=== PATIENT | female | born 1980 | race Hispanic/Latino ===

== ENCOUNTER 2022-07-17 22:21 | Emergency (ER) | payer SELFPAY ==
--- NOTE | ~2022-07-17 | US_ITS ---
EXAMINATION: US OB <=14 wk fetus w TV DATE: 07/18/2022 02:51 INDICATION: Pelvic pain. Positive hCG test. TECHNIQUE: Real-time transabdominal and transvaginal obstetric ultrasound. FINDINGS: No prior studies for comparison. The uterus measures 10.8 x 6.1 x 5.7 cm. There is an intrauterine gestational sac measuring 1.08 cm m dashawn sac diameter, 5 weeks 6 days. Yolk sac and pole are not identified. Ovaries are normal. No free fluid in the pelvis. IMPRESSION: 1. Intrauterine gestational sac corresponding to a 5 week 6 day gestation. Recommend follow-up with s erial quantitative beta hCG levels and ultrasound as clinically warranted. Reviewed, dictated and finalized at location A. [employer] IMPRESSION: 1. Intrauterine gestational sac corresponding to a 5 week 6 day gestation. Jarrod mmend follow-up with serial quantitative beta hCG levels and ultrasound as clin ically warranted.
[2022-07-17 22:26] VITALS: BP 122/81; PULSE 86; RESP 18; TEMP 36.7; O2SAT 100
[2022-07-18 00:18] LABS: Basophils Absolute Auto 0.1 K/mm3 (0.0-0.1); Basophils Percent Auto 0.7 % (0.2-1.2); Eosinophils Absolute Auto 0.1 K/mm3 (0-0.3); Eosinophils Percent Auto 1.4 % (0-4.4); Hematocrit 36.6 % (37.0-47.0); Hemoglobin 12.1 g/dL (12.0-15.0); Immature Granulocyte Absolute 0.03 K/mm3 (0.00-0.031); Immature Granulocyte Percent A 0.3 % (0-0.5); Lymphocytes Absolute Auto 3.28 K/mm3 (0.9-3.2); Lymphocytes Percent Auto 37.9 % (18.3-44.2); Mean Corpuscular HGB Conc 33.1 g/dl (32-36); Mean Corpuscular Hemoglobin 27.7 pg (26-34); Mean Corpuscular Volume 83.8 fl (80-100); Mean Platelet Volume 10.2 fl (7.4-10.4); Monocytes Absolute Auto 0.8 K/mm3 (0.1-0.6); Monocytes Percent Auto 8.7 % (2.6-8.5); Neutrophils Absolute Auto 4.4 K/mm3 (1.3-6.7); Platelet Count Result 298 k/mm3 (150-375); Red Blood Count 4.37 M/mm3 (4.2-5.4); Red Cell Distribution Width 13.3 % (11.5-14.5); White Blood Count 8.7 K/mm3 (4.5-10.0)
[2022-07-18 00:20] LABS: Appearance Urine Slightly Cloudy (Clear); Bilirubin Urine Negative (Negative); Blood Urine Trace-intact (Negative); Color Urine Yellow (Yellow); Glucose Urine UA Negative (Negative); Ketones Urine Negative (Negative); Leukocyte Esterase Ur Negative LEU/UL (Negative); Nitrate Urine Positive (Negative); Protein Urine Negative (Negative); Specific Grav Ur 1.025 (1.001-1.035); Urobilinogen Urine 0.2 mg/dL (<2.0)
[2022-07-18 00:25] LABS: Influenza A QL RT-PCR Negative (Negative); Influenza B QL RT-PCR Negative (Negative); SARS-CoV-2 RNA PCR Negative
[2022-07-18 00:27] LABS: Bacteria Urine 2+ /hpf; Mucus Urine Moderate /lpf; RBC Urine 0-2 /hpf (0-2); Squamous Epithelial Cell Urine Many /hpf (Few); WBC Urine 0-3 /hpf
[2022-07-18 00:29] LABS: Add Urine Microscopic? YES
[2022-07-18 00:42] LABS: Alanine Aminotransferase 19 U/L (6-35); Albumin Level 4.4 g/dL (3.5-5.1); Alkaline Phosphatase 78 U/L (38-126); Anion Gap 7 mmol/L (8-16); Aspartate Amino Transferase 22 U/L (14-36); Bilirubin,Total 0.3 mg/dL (0.2-1.3); Blood Urea Nitrogen 11 mg/dL (7-17); Calcium 8.6 mg/dL (8.4-10.2); Carbon Dioxide 23 mmol/L (22-30); Chloride 106 mmol/L (98-107); Estimated Glomerular Filt Rate > 60; Glucose 97 mg/dL (65-110); Lipase 45 U/L (23-300); Potassium 3.3 mmol/L (3.4-5.0); Sodium 136 mmol/L (137-145)
[2022-07-18 01:00] VITALS: BP 126/78; PULSE 80; RESP 16; O2SAT 98
[2022-07-18] MEDS: DOXYCYCLINE HYCLATE 100 MG TABLET PO (01:25)
[2022-07-18 02:00] VITALS: BP 126/80; PULSE 84; RESP 16; O2SAT 98
[2022-07-18] MEDS: POTASSIUM CHLORIDE 20 MEQ PACKET (FOR LIQUID) PO (02:51)
--- NOTE | 2022-07-18 03:02 | ED.ABDPAIN ---
HPI - Abdominal Pain General Chief Complaint: Abdominal Pain Stated Complaint: sick Time Seen by Provider: 07/18/22 00:27 Source: patient Mode of arrival: ambulatory Limitations: no limitations History of Present Illness HPI narrative: 42-year-old Romanian-speaking female presents today with her at bedside. Patient here with concerns of lower abdominal pain that started about 10 days ago. Patient states there is very little abdominal pain. She denies any vaginal bleeding, burning on urination, does endorse minimal back pain. Denies fevers, body aches, chills, nausea, vomiting, diarrhea. She does endorse a positive urine test at home. This did make her a G8, P7. She has 7 children at home the youngest being 5. Related Data Allergies Allergy/AdvReac Type Severity Reaction Status Date / Time No Known Allergies Allergy Verified 07/18/22 00:15 Review of Systems Review of Systems: CONSTITUTIONAL: Denies fever, chills, or sweats. EYES: Denies visual changes, redness, or discharge. ENT: Denies rhinorrhea, congestion, sore throat, or otalgia. CARDIOVASCULAR: Denies chest pain, palpitations, or edema. RESPIRATORY: Denies cough or dyspnea. GASTROINTESTINAL: Abdominal pain. Denies nausea, vomiting, or diarrhea. GENITOURINARY: Denies dysuria or hematuria. SKIN: Denies rash or itching. MUSCULOSKELETAL: Denies back pain, joint pain, or myalgia. NEUROLOGIC: Denies headache, numbness, dizziness, or weakness. PSYCHIATRIC: Denies anxiety or depression. Exam Narrative: GENERAL: Well-appearing, well-nourished, and in no acute distress. HEAD: Normocephalic, atraumatic. EYES: PERRLA and EOMI. CHEST: Clear to auscultation. No respiratory distress. No wheezes rales or rhonchi HEART: Regular rate and rhythm. No murmur heard. Normal peripheral pulses. ABDOMEN: Pelvic tenderness. Soft nondistended, normal active bowel sounds. EXTREMITIES: Normal range of motion. No edema. SKIN: Warm, dry, no rash. NEURO: No focal deficits. Alert and oriented x3. PSYCH: Normal mood and affect. Course Vital Signs Vital signs: Vital Signs Temperature 98.1 F 07/17/22 22:26 Pulse Rate 86 07/17/22 22:26 Respiratory Rate 18 07/17/22 22:26 Blood Pressure 122/81 07/17/22 22:26 Pulse Oximetry 100 07/17/22 22:26 Oxygen Delivery Room Air 07/17/22 22:26 Temperature 98.1 F 07/17/22 22:26 Pulse Rate 84 07/18/22 02:00 Respiratory Rate 16 07/18/22 02:00 Blood Pressure 126/80 07/18/22 02:00 Pulse Oximetry 98 07/18/22 02:00 Oxygen Delivery Room Air 07/17/22 22:26 MDM - Abdominal Pain MDM Narrative Medical decision making narrative: 42-year-old female HPI as noted. Work-up to include CBC, CMP, urinalysis, urine test, beta hCG, influenza, SARS, obstetric ultrasound. CBC without concerning findings. CMP with a potassium of 3.3 will replace orally. Urinalysis shows concerns for possible UTI. Beta hCG was elevated. Due to patient having lower abdominal pain ultrasound ordered to rule out ectopic. Ultrasound shows IUP. Patient without any bleeding. Will discharge plan follow-up with OB for further management and to return with any new or worsening concerns. Differential Diagnosis Differential diagnosis: Likely abdominal pain and other (UTI, ectopic ,) Medical Records Attestation: I reviewed the patient's medical records. Lab Data Attestation: I reviewed the patient's lab results. 07/18/22 00:10 07/18/22 00:10 Labs: Lab Results 07/17/22 07/18/22 07/18/22 Range/Units 23:42 00:10 00:10 WBC 8.7 (4.5-10.0) K/mm3 RBC 4.37 (4.2-5.4) M/mm3 Hgb 12.1 (12.0-15.0) g/dL Hct 36.6 L (37.0-47.0) % MCV 83.8 (80-100) fl MCH 27.7 (26-34) pg MCHC 33.1 (32-36) g/dl RDW 13.3 (11.5-14.5) % Plt Count 298 (150-375) k/mm3 MPV 10.2 (7.4-10.4) fl Immature Gran % (Auto) 0.3 (0-0.5) % Neut % (Auto) 51.0 (45.5-73.1
== END 2022-07-18 03:37 | disposition home or self-care (01) ==
PROVIDERS: Emergency Medicine; Emergency Provider Nurse Practitioner Family
DX: O23.41 Unspecified infection of urinary tract in pregnancy, first trimester (principal); N39.0 Urinary tract infection, site not specified; Z3A.01 Less than 8 weeks gestation of pregnancy; Z20.822 Contact with and (suspected) exposure to COVID-19
CPT/HCPCS: 36415; 76801; 76817; 80053; 81001; 81025; 83690; 84702; 85025; 87636; 99284; A9270

== ENCOUNTER 2022-12-10 08:44 | Observation (INO) | payer OTHER, SELFPAY ==
[2022-12-10] VITALS (11 sets, daily range): BP systolic 89–107; BP diastolic 43–67; PULSE 67–79; RESP 16; TEMP 36.2
--- NOTE | ~2022-12-10 | US_ITS ---
EXAMINATION: 1. US OB follow up 2. US OB transvaginal DATE: 12/10/2022 11:36 INDICATION: rupture of membranes. TECHNIQUE: Real-time transvaginal and transabdominal ultrasound of the pelvis was performed. COMPARISON: Ultrasound 09/09/2022, 07/18/2022 FINDINGS: There is a single living fetus in breech presentation. The placenta is fundal. heart rate is 2 18 beats per minute (bpm). The amniotic fluid index is 16.2 cm, which is normal. The cervix is open. The following biometric data were obtained: Biparietal diameter (BPD): 6.6 cm; head circumference (HC): 24.4 cm; abdominal circumference (AC): 23 .6 cm; femur length (FL): 4.8 cm. These measurements are discordant. The HC/AC ratio is low. Estimated weight is 1018 g +/- 153 g, which correlates with the 58th percentile when 03/14/23 is used as estimated date of delivery. As single measurements, these parameters are each equal to the following estimated gestational ages: BPD: 26 weeks 4 days. HC: 26 weeks 3 days. AC: 27 weeks 6 days. FL: 26 weeks 0 days. estimated gestational age based solely on measurements from this exam is 26 weeks 5 days +/- 1 weeks 6 days. IMPRESSION: 1. Single living fetus in breech presentation. 2. Estimated weight is 1018 g +/- 153 g, which correlates with the 58th percentile when 03/14/23 is used as estimated date of delivery. 3. Discordant biometrics with low HC/AC. 4. Normal amniotic fluid index. 5. Open cervix. Reviewed, dictated and finalized at location A. IMPRESSION: 1. Single living fetus in breech presentation. 2. Estimated weight is 1018 g +/- 153 g, which correlates with the 58th percentile when 03/14/23 is used as estimated date of delivery. 3. Discordant biometrics with low HC/AC. 4. Normal amniotic fluid index. 5. Open cervix.
--- NOTE | 2022-12-10 08:44 | OBADM ---
This patient, Luzma Edmondson, admitted to the OB room OB Post [facility] for observation. Patient/family oriented to hospital policies and general routines including ID bracelet, bed and alarms, visiting hours, pain management, procedures, bathroom and other care routines, personal items, smoking policy, room service/diet, and visiting hours. Patient/Family are encouraged to report perceived risks to care and to ask questions if they do not understand what they are told or what they should do.
[2022-12-10] MEDS: LACTATED RINGERS 1,000 ML 150 ML IV CONT (10:22)
[2022-12-10] MEDS: BETAMETHASONE SOD PHOS/ACETATE 30 MG/5 ML VIAL (10:24)
[2022-12-10] MEDS: AMPICILLIN 2 GM/NS 100 ML 2 GM/100 ML BAG IVPB (10:24)
--- NOTE | 2022-12-10 10:46 | PM.IMHP ---
H&P: HPI History of Present Illness Date/Time: 12/10/22 10:46 Chief Complaint: 26w2d here with rupture of membranes since 0900 on 12-09 Narrative: at 26w2d here with SROM on 12-09 at 0900 VSS Abdomen soft. Occasional cramping FHR category 1 Leaking clear odorless fluid Deferred vaginal exam Plan: IV, AMP, steroids, bedside ultrasound Spoke with [facility]. Awaiting call back. Meds Home Medications and Allergies Home Medications Medication Instructions Recorded Confirmed Type cephalexin 500 mg capsule 500 mg PO QID #28 caps 07/18/22 Rx prenat.vits,emily,pva-awxn-mrekd 1 tablet PO DAILY #30 tabs 07/18/22 Rx Allergies Allergy/AdvReac Type Severity Reaction Status Date / Time No Known Allergies Allergy Verified 07/18/22 00:15 Vital Signs Vital Signs - 24 hr 12/10/22 09:18 12/10/22 09:30 12/10/22 09:46 Pulse Rate 71 79 72 Blood Pressure 103/61 100/67 107/63 12/10/22 10:01 12/10/22 10:16 Pulse Rate 70 67 Blood Pressure 99/61 L 98/59 L Assessment and Plan Assessment and plan (1) premature rupture of membranes: Code(s): O42.919 - premature rupture of membranes, unspecified as to length of time between rupture and onset of labor, unspecified trimester Status: Acute
--- NOTE | 2022-12-10 11:04 | WPDHPUPDATE1 ---
History and Physical Update Update Date/Time: 12/10/22 11:[address] Carolina at [facility]. They will arrange transport and nurse will call for additional report. History and Physical has been reviewed, including an updated exam of the patient. There are NO changes in the patient's condition. Risks, benefits, and alternatives have been discussed and questions answered. Patient agrees to proceed with procedure.
[2022-12-10] MEDS: MAGNESIUM SULF 4 GM/WATER100ML 4 GM/100 ML BAG IVPB (11:28)
--- NOTE | 2022-12-15 09:28 | PM.OBTRLD ---
OB - Triage/Final Diagnosis Visit Information Comments/Additional reasons for admission: I have assessed the risk for this patient, Luzma Edmondson, and determined that she would benefit from observation care. Final Diagnosis (1) premature rupture of membranes (PPROM) delivered, current hospitalization: Code(s): O42.919 - premature rupture of membranes, unspecified as to length of time between rupture and onset of labor, unspecified trimester Status: Acute
== END 2022-12-10 12:14 | disposition short-term general hospital (02) ==
PROVIDERS: Admitting Provider Obstetrics & Gynecology; Visit Provider Obstetrics & Gynecology
DX: O42.912 Preterm premature rupture of membranes, unspecified as to length of time between rupture and onset of labor, second trimester (principal); Z3A.27 27 weeks gestation of pregnancy
CPT/HCPCS: 76816; 76817; 84112; 96365; 96367; G0379; J0290; J0456; J0702; J3475; J7060; J7120